=== PATIENT | male | born 1965 | race Caucasian/White ===

== ENCOUNTER 2017-06-15 10:14 | Emergency (ER) | payer OTHER ==
[~2017-06-15] VITALS: Ht 172.7 cm; Wt 91.3 kg
[2017-06-15 10:20] VITALS: Ht 172.7 cm; Wt 91.3 kg
[2017-06-15] MEDS ORDERED: TEST1KIT SQ (10:55)
[2017-06-15] MEDS ORDERED: MONT1TAB3 PO (10:55)
[2017-06-15] MEDS ORDERED: SERT50TA PO (10:55)
[2017-06-15] MEDS ORDERED: ASPI325T45 PO (10:55)
[2017-06-15] MEDS ORDERED: LORA10CA2 PO (10:55)
[2017-06-15] MEDS ORDERED: VNTHFA/IN INH (10:55)
[2017-06-15] MEDS ORDERED: HYZ/10015 PO (10:55)
[2017-06-15] MEDS ORDERED: ACET-1257 (10:55)
[2017-06-15] MEDS ORDERED: ADVIN10/60 INH (10:55)
[2017-06-15 11:16] LABS: BASO % 0.4 %; BASO ABS # 0.04 K/uL (0-0.2); COMPLETE YES; EOS % 2.7 %; HEMATOCRIT 47.2 % (42-52); IG% 0.6 %; LYMPH % 9.1 %; LYMPH ABS # 0.91 K/uL (1.2-3.4); MEAN CELL VOLUME 75.2 fL (80-100); MEAN CORPUSCULAR HEMOGLOBIN 25.2 pg (25-34); MEAN CORPUSCULAR HGB CONC 33.5 g/dl (32-36); MEAN PLATELET VOLUME 10.3 fL (7.4-10.4); MONO % 8.2 %; PLATELET COUNT 214 K/uL (130-400); RED BLOOD COUNT 6.28 M/uL (4.7-6.1); WHITE BLOOD COUNT 10.01 K/uL (4.8-10.8)
[2017-06-15 11:24] LABS: INR 0.9 (0.9-1.1)
[2017-06-15 11:32] LABS: BUN/CREATININE RATIO 12.8 (10-20); CALCIUM 8.3 mg/dl (8.5-10.1); CREATININE 1.13 mg/dl (0.60-1.40)
[2017-06-15 11:52] VITALS: TEMP 36.7
--- NOTE | 2017-06-15 12:24 | DIAGNOSTIC IMAGING REPORT ---
ULTRASOUND L VENOUS DOPP LOWER EXT UNILAT CLINICAL HISTORY: L calf pain and swelling COMPARISON STUDY: No previous studies for comparison. FINDINGS: No thrombus was visualized in the common femoral superficial femoral or popliteal veins. There is a calf vein thrombus involving the peroneal veins. The anterior tibial and posterior tibial veins appear patent. IMPRESSION: Left calf vein DVT involving the peroneal vein. Electronically signed by: Oswaldo Valverde M.D. 06/15/2017 12:23 PM Dictated Date/Time: 06/15/2017 12:22 PM
[2017-06-15] MEDS ORDERED: XRL10 PO (13:11)
[2017-06-15] MEDS ORDERED: RIVAROXABAN TAB 15 MG TAB PO ONE (13:15)
--- NOTE | 2017-06-15 13:28 | Pharmacy Progress Note ---
ED Pharmacist Progress Note Date of Service: Jun 15, 2017. I spent 10 minutes with the patient explaining Xarelto. Adverse effects, drug interactions, and other pertinent drug information were reviewed with the patient. All of the patient's questions and concerns were addressed.
[2017-06-15] MEDS ORDERED: OXYCODONE/ACETAMINOPHEN 5-325 TAB PO ONE (14:15)
[2017-06-15 14:20] VITALS: BP 127/81; PULSE 88; O2SAT 100
--- NOTE | 2017-06-15 16:49 | EMERGENCY ROOM VISIT NOTE ---
ED Visit Note First contact with patient: 10:25 Chief Complaint: I'm having left calf pain and swelling. History of Present Illness: Mr. Webster is a 52-year-old white male who ambulates into the ED complaining of posterior left lower leg pain. Historically patient reports he has no previous history of deep vein thrombus. 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 Patient reports 2-3 weeks ago he started noticing a developing sharp pain in the left gastrocnemius. Since that time the pain has been constant and gradually increasing in intensity. Currently he rates his discomfort 6/10. His pain as intermittently radiating into the posterior knee. His pain worsens with palpation and minimally with ambulation. He reports last night he started noting moderate swelling of the left lower leg. He reports he discussed this with his and took a picture of his leg and senna to his and her boss who is a singing waiter or waitress in [place] and they recommended that he come to the emergency department for evaluation of deep vein thrombus. Patient reports she has not taken a medication for pain prior to arrival at the hospital. He denies any associated symptoms including fevers, chills, skin eruptions, skin color changes, chest pain, shortness of breath, wheezing, hemoptysis, palpitations, orthopnea, recent surgery, abdominal pain, back pain, left leg weakness/numbness/tingling. Review of Systems: As noted above in history of present illness. All body systems were reviewed and found to be negative as noted above. Past Medical History: Hypertension, asthma, seasonal allergies. Current Medications: Medications Dose Route/Sig Max Daily Dose Days Date Category Claritin (Loratadine) 10 Mg Cap 1 Cap PO DAILY 30 06/15/17 Reported Tylenol Extra Strength (Acetaminophen) 500 Mg Tab 06/15/17 Reported Aspirin 325 Mg Tab 325 Mg PO 06/15/17 Reported Testone Cik (Testosterone Cypionate) 200 Mg/Ml Kit 1 SQ WK 06/15/17 Reported Zoloft (Sertraline HCl) 50 Mg Tab 1 Tab PO DAILY 30 06/15/17 Reported Ventolin Hfa (Albuterol) 200 Puffs/30587 Mcg Aers 2-4 Puffs INH PRN 06/15/17 Reported Advair Diskus 100/50 60 Dose (Fluticasone Prop/Salmeterol) 1 Ea Aerp 1 Puffs INH DAILY 30 06/15/17 Reported Singulair (Montelukast Sodium) 10 Mg Tab 1 Tab PO DAILY 90 06/15/17 Reported Hyzaar 25MG/100MG (HCTZ/Losartan Potassium) Tab 1 Tab PO DAILY 06/15/17 Reported Allergies to Medications: Sulfa. Social History: Patient is currently employed; he feels safe in his home environment; he denies tobacco use; he admits to alcohol use. Physical Examination: Vital Signs: Date Time Temp Pulse Resp B/P (MAP) Pulse Ox O2 Delivery O2 Flow Rate FiO2 06/15/17 14:20 88 20 127/81 100 06/15/17 12:25 91 20 143/96 96 06/15/17 11:52 36.7 90 16 139/88 96 Room Air 06/15/17 10:20 36.6 97 18 144/99 98 Room Air GENERAL: 52-year-old male in mild distress due to pain, nontoxic-appearing, afebrile and hemodynamically stable. NEUROLOGICAL: Awake, alert and oriented to person, place and time. Answering questions appropriately and following commands. Good hand eye coordination. SKIN: Warm, dry and pink. No soft tissue eruptions or trauma noted. HEENT: Atraumatic and normocephalic. Pharynx is nonerythematous or edematous. Speech normal. No lymphadenopathy. Trachea midline. No jugular venous distention. No carotid bruits. BACK: No tenderness over the bony lumbar spine. THORAX: Lungs sounds are clear to auscultation and equal bilaterally with symmetrical chest wall. No wheezing, rales or rhonchi. No crepitus, tenderness , subcutaneous air or deformities noted. HEART: Regular rate and rhythm. No gallops, rubs or murmurs are appreciated. PMI was not displaced. No lifts, heaves or thrills. ABDOMEN: Flat, soft and nontender. Positive bowel sounds in all quadrants. No guarding, rigidity or organomegaly. LOWER EXTREMITIES: No tenderness over the hips, thighs, knees, ankle or feet. Mild to moderate tenderness over the left gastrocnemius; no tenderness over the right gastrocnemius. Full range of motion in flexion and extension of the knees and plantar flexion and dorsiflexion of the ankle against resistance. +1 dependent edema over the left lower leg. No dependent edema on the right. Dorsalis pedis and anterior tibialis pulses are intact and equal bilaterally. Throughout the foot the skin was warm and pink and capillary refill is brisk. He was able to distinguish light sensations through all dermatomes of the legs and feet. No calf tenderness or cords. ED Course: Patient is assessed as noted above. Patient's medication list was reviewed. Laboratory Testing: Test 06/15/17 11:00 Range/Units White Blood Count 10.01 4.8-10.8 K/uL Red Blood Count 6.28 4.7-6.1 M/uL Hemoglobin 15.8 14.0-18.0 g/dL Hematocrit 47.2 42-52 % Mean Corpuscular Volume 75.2 80-100 fL Mean Corpuscular Hemoglobin 25.2 25-34 pg Mean Corpuscular Hemoglobin Concent 33.5 32-36 g/dl Platelet Count 214 130-400 K/uL Mean Platelet Volume 10.3 7.4-10.4 fL Neutrophils (%) (Auto) 79.0 % Lymphocytes (%) (Auto) 9.1 % Monocytes (%) (Auto) 8.2 % Eosinophils (%) (Auto) 2.7 % Basophils (%) (Auto) 0.4 % Neutrophils # (Auto) 7.91 1.4-6.5 K/uL Lymphocytes # (Auto) 0.91 1.2-3.4 K/uL Monocytes # (Auto) 0.82 0.11-0.59 K/uL Eosinophils # (Auto) 0.27 0-0.5 K/uL Basophils # (Auto) 0.04 0-0.2 K/uL RDW Standard Deviation 48.1 36.4-46.3 fL RDW Coefficient of Variation 17.6 11.5-14.5 % Immature Granulocyte % (Auto) 0.6 % Immature Granulocyte # (Auto) 0.06 0.00-0.02 K/uL Prothrombin Time 10.0 9.0-12.0 SECONDS Prothromb Time International Ratio 0.9 0.9-1.1 Activated Partial Thromboplast Time 25.2 21.0-31.0 SECONDS Partial Thromboplastin Ratio 1.0 Sodium Level 138 136-145 mmol/L Potassium Level 4.0 3.5-5.1 mmol/L Chloride Level 107 98-107 mmol/L Carbon Dioxide Level 26 21-32 mmol/L Anion Gap 5.0 3-11 mmol/L Blood Urea Nitrogen 14 7-18 mg/dl Creatinine 1.13 0.60-1.40 mg/dl Est Creatinine Clear Calc Drug Dose 83.9 ml/min Estimated GFR () 86.1 Estimated GFR (Non- 74.3 BUN/Creatinine Ratio 12.8 10-20 Random Glucose 106 70-99 mg/dl Calcium Level 8.3 8.5-10.1 mg/dl Lower Extremity Venous Doppler Ultrasound: Was reviewed by myself and read by the radiologist showing a deep vein thrombus in the peritoneal veins with normal appearing common femoral, superficial femoral, popliteal, anterior tibial and posterior veins. Patient's case was reviewed with Dr. Fontaine; we agreed on diagnostic approach, treatment, disposition and plan. Patient's case was reviewed with Bruno Hargrove, ED pharmacist; we discussed multiple treatment options and agreed on Xarelto. Patient was given 15 mg of Xarelto by mouth. Patient was educated about today's findings and instructed on his treatment plan ; he verbalizes understanding and agreement with this plan. Just prior to discharge patient requested nursing staff for pain medication and patient was given a prescription for Percocet 5/325 mg and instructed to use one to 2 tablets every 6 hours as needed for pain; nursing staff reviewed narcotic precautions with the patient. Clinical Impression: Left lower extremity deep vein thrombus. Decision-Making: Initially my differential diagnosis I considered deep vein thrombus, muscle strain, dependent edema, popliteal cyst rupture and other causes. Disposition: Patient discharged home in stable condition; prior to departure he was reassessed and subjectively reported his pain was slightly worse and rated his discomfort 8/10. Plan: Please note additional struck chin's above for Percocet. Patient was encouraged use 50 mg of Xarelto 2 times a day for 21 days. Patient was encouraged to keep his foot elevated while at rest. Patient was encouraged to avoid sitting, standing or lying around for long periods of time without leg or foot movement. Patient was encouraged to stay well-hydrated with increased clear fluids. Patient was encouraged to consider using [id number] compression stockings. Patient was encouraged to contact his family physician, inform them of today's ED visit and request follow-up care and treatment. Patient was encouraged return ED for worsening/uncontrolled pain, uncontrolled swelling, foot weakness/numbness/tingling, chest pain, shortness of breath, sensations of palpitation or any new/concerning symptoms.
== END 2017-06-15 14:24 | disposition home or self-care (01) ==
LOC: C.EDB 10:16
DX: I82.4Z2 Acute embolism and thrombosis of unspecified deep veins of left distal lower extremity (principal); I10 Essential (primary) hypertension; J45.909 Unspecified asthma, uncomplicated; J30.2 Other seasonal allergic rhinitis